=== PATIENT | female | born 1990 | race Caucasian/White ===

== ENCOUNTER 2018-04-05 04:30 | Inpatient (IN) | payer BC ==
[2018-04-05] MEDS: Lactated Ringer's 1,000 ML IV SCH ×3 (06:45→14:34)
[2018-04-05] MEDS ORDERED: Ondansetron HCl/PF 4 MG/2 ML Vial IVP PRN ×3 (06:47→20:45)
[2018-04-05] MEDS ORDERED: Promethazine HCl 25 MG/ML VIAL IM PRN ×2 (06:47→13:57)
[2018-04-05] MEDS ORDERED: Docusate 100 MG CAP PO PRN (06:47)
[2018-04-05] MEDS ORDERED: Butorphanol Tartrate 1 MG/ML VIAL SLOW IVP PRN (06:47)
[2018-04-05] MEDS ORDERED: Ibuprofen 800 MG TAB PO PRN (06:47)
[2018-04-05] MEDS ORDERED: HYDROcodone/Acetaminophen 5/325 mg Tablet PO PRN ×2 (06:47)
[2018-04-05] MEDS ORDERED: Misoprostol 200 MCG TAB PR PRN (06:47)
[2018-04-05] MEDS ORDERED: Lidocaine 1% (PF) 30 ML VIAL SC PRN (06:47)
[2018-04-05] MEDS ORDERED: NS / Oxytocin 40 units/1000ml 1,000 ML IV PRN (06:47)
[2018-04-05 06:57] VITALS: BMI 29.1
[2018-04-05] MEDS: NS w/ Oxytocin 10 units 500 ML IV SCH ×2 (07:08→18:24)
[2018-04-05 07:10] LABS: Hemoglobin 13.5 g/dL (12.0-16.0); Mean Corpuscular HGB CONC 34.3 g/dL (32.0-36.0); Mean Corpuscular Hemoglobin 32.1 pg (27.0-31.0); Mean Corpuscular Volume 93.6 fL (78.0-98.0); Mean Platelet Volume 8.3 fL (7.4-10.4); Platelet Count 194 thou/uL (130-400); RBC Distribution Width 11.7 % (11.5-14.5)
[2018-04-05] MEDS ORDERED: Bupivacaine 0.75% 13.4 ML, fentaNYL Citrate/PF 400 MCG in Sodium Chloride 0.9% 78.6 ML EPIDURAL SCH (07:30)
[2018-04-05] MEDS ORDERED: DISCONTINUE ALL PREVIOUS NARCOTICS FS SCH (07:30)
[2018-04-05 07:47] LABS: Syphilis Antibody Nonreactive (Nonreactive); Syphilis Antibody Index 0.03 S/CO (<1.00 Non-Reactive)
[2018-04-05 07:51] LABS: HBSAg Index 0.22 S/CO (0-0.99); Hep B Surf Ag Non-Reactive S/CO (NonReactive)
[2018-04-05] MEDS ORDERED: diphenhydrAMINE 50 MG/ML VIAL IVP PRN (13:57)
[2018-04-05] MEDS ORDERED: Lactated Ringer's 500 ML IV PRN (13:57)
[2018-04-05] MEDS ORDERED: Naloxone HCl 0.4 mg/ml Vial IVP PRN ×2 (13:57)
[2018-04-05] MEDS ORDERED: ePHEDrine/0.9% NaCl/PF SYRINGE 50 mg/10 ml SLOW IVP PRN (13:57)
[2018-04-05] MEDS ORDERED: Acetaminophen 325 MG TAB PO PRN (13:57)
[2018-04-05] MEDS ORDERED: Eucerin (Mineral Oil/Petrolatum,White) 30 gm Jar TOP PRN (13:57)
[2018-04-05] MEDS ORDERED: fentaNYL Citrate/PF 400 MCG, Bupivacaine 0.5% 20 ML in Sodium Chloride 0.9% 72 ML EPIDURAL SCH (14:00)
[2018-04-05] MEDS ORDERED: Communication Order-Pharmacy FS SCH (14:00)
[2018-04-05] MEDS ORDERED: Bupivacaine/Epinephrine 0.25% 30 ML VIAL ONE (20:00)
[2018-04-05] MEDS ORDERED: Benzocaine/Menthol 20-0.5% 60 ML CAN TOP PRN (20:45)
[2018-04-05] MEDS ORDERED: Preparation H Ointment 28 GM TUBE PR PRN (20:45)
[2018-04-05] MEDS ORDERED: Lanolin Ointment 7 GM TUBE TOP PRN (20:45)
[2018-04-05] MEDS ORDERED: Milk Of Magnesia 30 ML UDCUP PO PRN (20:45)
[2018-04-05] MEDS ORDERED: Bisacodyl 10 MG SUPP PR PRN (20:45)
[2018-04-05] MEDS ORDERED: diphenhydrAMINE 25 MG CAP PO PRN (20:45)
[2018-04-05] MEDS ORDERED: Zolpidem Tartrate 5 MG TAB PO PRN (20:45)
[2018-04-05] MEDS ORDERED: NS / Oxytocin 40 units/1000ml 1,000 ML IV SCH (20:45)
[2018-04-05] MEDS ORDERED: Acetaminophen/Codeine 30-300mg Tablet PO PRN ×2 (20:45)
[2018-04-05] MEDS: Docusate Calcium (SURFAK) 240 MG CAP PO SCH (21:34)
[2018-04-05] MEDS ORDERED: Adacel (T-DAP) 0.5 ML VIAL IM ONE (22:00)
[2018-04-06] MEDS: Ibuprofen 800 MG TAB PO SCH ×4 (01:12→22:10)
[2018-04-06 05:54] LABS: Hemoglobin 12.7 g/dL (12.0-16.0); Mean Corpuscular Hemoglobin 31.8 pg (27.0-31.0); Mean Corpuscular Volume 93.6 fL (78.0-98.0); Mean Platelet Volume 8.3 fL (7.4-10.4); Platelet Count 175 thou/uL (130-400); RBC Distribution Width 11.5 % (11.5-14.5); Red Blood Cell (RBC) Count 3.98 mill/uL (4.20-5.40); White Blood Cell (WBC) Count 10.6 thou/uL (4.8-10.8)
[2018-04-06] MEDS: Ferrous Sulfate 325 MG TAB PO SCH ×2 (09:18→17:17)
[2018-04-06] MEDS: Prenatal Vitamin 1 TAB PO SCH (09:21)
[2018-04-06] MEDS: Docusate Calcium (SURFAK) 240 MG CAP PO SCH ×2 (09:21→22:09)
[2018-04-07] MEDS: Ibuprofen 800 MG TAB PO SCH (06:14)
[2018-04-07 08:32] VITALS: BP 102/59; TEMP 98.5
[2018-04-07] MEDS: Docusate Calcium (SURFAK) 240 MG CAP PO SCH (09:33)
[2018-04-07] MEDS: Ferrous Sulfate 325 MG TAB PO SCH (09:33)
[2018-04-07] MEDS: Prenatal Vitamin 1 TAB PO SCH (09:33)
== END 2018-04-07 11:45 | disposition home or self-care (01) | DRG 775 ==
LOC: L&D 06:10 → 3SW 23:44
PROVIDERS: ADMIT Obstetrics & Gynecology; ATTEND Obstetrics & Gynecology
PROC: 10E0XZZ Delivery of Products of Conception, External Approach (ICD-10-PCS; principal; 2018-04-05)
PROC: 0KQM0ZZ Repair Perineum Muscle, Open Approach (ICD-10-PCS; 2018-04-05)
PROC: 3E033VJ Introduction of Other Hormone into Peripheral Vein, Percutaneous Approach (ICD-10-PCS; 2018-04-05)
PROC: 0UQMXZZ Repair Vulva, External Approach (ICD-10-PCS; 2018-04-05)
DX: O36.5930 Maternal care for other known or suspected poor fetal growth, third trimester, not applicable or unspecified (principal); O77.0 Labor and delivery complicated by meconium in amniotic fluid; O70.1 Second degree perineal laceration during delivery; O71.82 Other specified trauma to perineum and vulva; Z3A.38 38 weeks gestation of pregnancy; Z37.0 Single live birth
CPT/HCPCS: 36415; 85027; 86780; 86850; 86900; 86901; 87340; 90715; J2001; J3010; J7050